=== PATIENT | male | born 1970 | race Caucasian/White ===

== ENCOUNTER 2017-01-12 10:53 | Emergency (ER) | payer OTHER ==
[~2017-01-12] VITALS: Ht 175.3 cm; Wt 127.0 kg
== END 2017-01-12 12:42 | disposition short-term general hospital (02) ==
LOC: ER 10:53
DX: M25.471 Effusion, right ankle (principal); Z87.39 Personal history of other diseases of the musculoskeletal system and connective tissue; Z79.899 Other long term (current) drug therapy
CPT/HCPCS: J2175